=== PATIENT | male | born 2005 | race Caucasian/White ===

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

== ENCOUNTER 2024-03-26 05:57 | Emergency (ER) | payer BC, OTHER ==
[2024-03-26] MEDS: Naproxen 500 MG Tab PO ONE (08:38)
[2024-03-26] MEDS: Orphenadrine 100 MG Tab.ER PO ONE (10:25)
== END 2024-03-26 14:00 | disposition home or self-care (01) ==
LOC: JD.ED 05:57
DX: M54.31 Sciatica, right side (principal); R25.2 Cramp and spasm; Z86.16 Personal history of COVID-19; Z88.1 Allergy status to other antibiotic agents
CPT/HCPCS: 99283; A9270